=== PATIENT | male | born 1955 | race Caucasian/White ===

== ENCOUNTER 2019-03-07 18:48 | Emergency (ER) | payer OTHER ==
[~2019-03-07] VITALS: Ht 177.8 cm; Wt 79.4 kg
--- NOTE | 2019-03-07 19:03 | NUR ---
PT KATHY FROM THE STREET FOR ETOH, PT C/O OF PALPITATIONS, DENIES CP/SOB. PT AAOX2-3, VERBALLY RESPONSIVE, PT ON MONITOR, VSS, NAD NOTED, PENDING MD GUILLEN
[2019-03-07 19:37] LABS: BASOPHILS # (AUTO) 0.1 /CMM (0.0-0.2); BASOPHILS % (AUTO) 1.1 % (0.0-2.0); EOSINOPHILS % (AUTO) 1.8 % (0.0-6.0); HEMATOCRIT 49 % (39-51); HEMOGLOBIN 16.2 g/dL (13.5-17.5); LYMPHOCYTES # (AUTO) 2.5 /CMM (0.8-4.8); LYMPHOCYTES % (AUTO) 39.8 % (20.0-44.0); MEAN CORPUSCULAR HGB CONC 33 g/dl (31.0-36.0); MEAN CORPUSCULAR VOLUME 96 fL (80-96); MONOCYTES # (AUTO) 0.8 /CMM (0.1-1.30); NEUTROPHILS # (AUTO) 2.8 /CMM (1.8-8.9); NEUTROPHILS % (AUTO) 44.3 % (43.0-81.0); PLATELET COUNT (AUTO) 228 /CMM (150-450); RED BLOOD CELL COUNT(AUTO) 5.08 MIL/uL (4.5-6.0); WHITE BLOOD COUNT (AUTO) 6.3 K/uL (4.3-11.0)
[2019-03-07 19:48] LABS: CALCIUM, SERUM 8.5 mg/dL (8.5-10.1); CARBON DIOXIDE 21 mmol/L (21-32); CHLORIDE 103 mmol/L (98-107); CREATININE 0.7 mg/dL (0.6-1.3); GLUCOSE 103 mg/dL (74-106); POTASSIUM 3.7 mmol/L (3.5-5.1); SODIUM SERUM 138 mmol/L (136-145); UREA NITROGEN, BLOOD 10 mg/dL (7-18)
[2019-03-07 19:55] LABS: ACETAMINOPHEN < 2 ug/ml (10-30); ALANINE AMINOTRANSFERASE 21 U/L (12-78); ALBUMIN 2.5 g/dL (3.4-5.0); ALCOHOL, BLOOD 212 mg/dL (0-0); ALKALINE PHOSPHATASE 134 U/L (46-116); ASPARTATE AMINOTRANSFERASE 26 U/L (15-37); BILIRUBIN,TOTAL 0.1 mg/dL (0.2-1.0); SALICYLATE 7.4 mg/dL (2.8-20.0); TOTAL PROTEIN, SERUM 6.3 g/dL (6.4-8.2)
--- NOTE | 2019-03-07 20:31 | NUR ---
PT STATES HE'S S/I, PT HAS A SITTER AT BS AT THIS TIME
[2019-03-07 21:07] LABS: APPEARANCE,URINE Clear (CLEAR); BILIRUBIN,URINE Negative (NEGATIVE); BLOOD, URINE Negative Ery/uL (NEGATIVE); COLOR,URINE Yellow (YELLOW); KETONES,URINE Negative (NEGATIVE); LEUKOCYTE ESTERASE ,URINE Negative (NEGATIVE); NITRITE, URINE Negative (NEGATIVE); PH,URINE 5.5 (5.0-8.0); PROTEIN,URINE Negative (NEGATIVE); UGLUCOSE Negative (NEGATIVE); UROBILINOGEN,URINE 0.2 EU/dL (0.2)
--- NOTE | 2019-03-08 00:59 | NUR ---
JERRY CRISIS TEAM AT BEDSIDE FOR EVAL. PT CLEARED BY JERRY.
--- NOTE | 2019-03-08 05:56 | NUR ---
pt requesting to be discharged. Pt ok to be discharged per Dr Thibodeaux. Patient discharged to home in stable condition. Written and verbal after care instructions given. Patient verbalizes understanding of instruction.Patient is awake and alert to self, day, and place. Pt ambulatory with a steady gait
[2019-03-08 05:57] VITALS: BP 126/78
== END 2019-03-08 05:58 | disposition home or self-care (01) ==
LOC: ER 18:54
DX: R45.851 Suicidal ideations (principal); F10.129 Alcohol abuse with intoxication, unspecified; R07.89 Other chest pain; F31.9 Bipolar disorder, unspecified; F19.10 Other psychoactive substance abuse, uncomplicated; R41.82 Altered mental status, unspecified; Y90.5 Blood alcohol level of 100-119 mg/100 ml; Z59.0 Homelessness
CPT/HCPCS: 36415; 71045; 80048; 80076; 80305; 80307 ×2; 80329; 81001; 84484; 85025; 93005; 99284; G0480; 81000-TC

== ENCOUNTER 2022-05-26 01:42 | Inpatient (IN) | payer MEDICARE, OTHER ==
[~2022-05-26] VITALS: Ht 175.3 cm; Wt 101.6 kg
--- NOTE | 2022-05-26 01:51 | NUR ---
PATIENT TIFFANIE FROM [facility] FOR MEDICAL CLEARANCE. ON 5150 DTO/GD. PATIENT IS A/O X 3, RR EVEN AND UNLABORED NO SOB NOTED, PT IS AFEBRILE. PATIENT IS STAND BY ASSIST. SKIN INTACT. PATIENT CONNECTED TO WELDER TACK AND POX. SITTER AT PT BEDSIDE. VSS, NO ACUTE DISTRESS NOTED. WILL CONTINUE TO MONITOR.
--- NOTE | 2022-05-26 01:52 | NUR ---
COVID SWAB COLLECTED
--- NOTE | 2022-05-26 02:02 | NUR ---
URINE COLLECTED SENT TO LAB
[2022-05-26] MEDS ORDERED: DIPH25CA83 PO (02:11)
[2022-05-26] MEDS ORDERED: THIA100T74 PO (02:11)
[2022-05-26] MEDS ORDERED: HYDR-4303 PO (02:11)
[2022-05-26] MEDS ORDERED: FOLIC ACID PO (02:11)
[2022-05-26] MEDS ORDERED: LIDO700A30 TP (02:11)
[2022-05-26] MEDS ORDERED: MELA3TAB41 PO (02:11)
[2022-05-26] MEDS ORDERED: MULT-754 PO (02:11)
[2022-05-26] MEDS ORDERED: ATOR10TA PO (02:11)
[2022-05-26] MEDS ORDERED: GABA600T12 PO (02:11)
[2022-05-26] MEDS ORDERED: DIVA500T2 PO (02:11)
[2022-05-26] MEDS ORDERED: FAMO-131 PO (02:11)
[2022-05-26] MEDS ORDERED: ACET325T53 PO (02:11)
[2022-05-26] MEDS ORDERED: AMLO-213 PO (02:11)
[2022-05-26 02:37] LABS: BASOPHILS % (AUTO) 0.7 % (0.0-2.0); EOSINOPHILS % (AUTO) 2.4 % (0.0-6.0); HEMATOCRIT 45 % (39-51); HEMOGLOBIN 15.1 g/dL (13.5-17.5); LYMPHOCYTES # (AUTO) 1.9 K/uL (0.8-4.8); MEAN CORPUSCULAR HGB CONC 33 g/dl (31.0-36.0); MEAN CORPUSCULAR VOLUME 88 fL (80-96); MONOCYTES # (AUTO) 0.9 K/uL (0.1-1.30); MONOCYTES % (AUTO) 13.3 % (2.0-12.0); NEUTROPHILS # (AUTO) 3.7 K/uL (1.8-8.9); NEUTROPHILS % (AUTO) 55.6 % (43.0-81.0); PLATELET COUNT (AUTO) 185 K/uL (150-450); RED BLOOD CELL COUNT(AUTO) 5.11 MIL/uL (4.5-6.0); WHITE BLOOD COUNT (AUTO) 6.7 K/uL (4.3-11.0)
[2022-05-26 02:40] LABS: BILIRUBIN,URINE SMALL (NEGATIVE); COLOR,URINE YELLOW (YELLOW); LEUKOCYTE ESTERASE ,URINE NEGATIVE (NEGATIVE); NITRITE, URINE NEGATIVE (NEGATIVE); PH,URINE 5.5 (5.0-8.0); PROTEIN,URINE NEGATIVE (NEGATIVE); UGLUCOSE NEGATIVE (NEGATIVE); UROBILINOGEN,URINE 0.2 EU/dL (0.2)
[2022-05-26 02:46] LABS: CALCIUM, SERUM 8.6 mg/dL (8.5-10.1); CARBON DIOXIDE 27 mmol/L (21-32); GLUCOSE 115 mg/dL (74-106); UREA NITROGEN, BLOOD 20 mg/dL (7-18)
[2022-05-26 02:50] LABS: BACTERIA,URINE Rare /HPF (None Seen); CALCIUM OXALATE CRYSTALS,UR Few /HPF (None Seen); SQUAMOUS EPITHELIAL CELL,UR Few /HPF (None Seen); WBC,URINE 0-2 /HPF (0-3)
[2022-05-26 02:52] LABS: ALANINE AMINOTRANSFERASE 20 U/L (12-78); ALBUMIN 2.8 g/dL (3.4-5.0); ALCOHOL, BLOOD < 3 mg/dL (0-0); ALKALINE PHOSPHATASE 123 U/L (46-116); ASPARTATE AMINOTRANSFERASE 16 U/L (15-37); BILIRUBIN,DIRECT 0.1 mg/dL (0.0-0.2); BILIRUBIN,TOTAL 0.2 mg/dL (0.2-1.0); CHLORIDE 104 mmol/L (98-107); POTASSIUM 4.1 mmol/L (3.5-5.1); SODIUM SERUM 137 mmol/L (136-145); TOTAL PROTEIN, SERUM 6.6 g/dL (6.4-8.2)
[2022-05-26 03:03] LABS: ACETAMINOPHEN 0 ug/ml (10-30)
--- NOTE | 2022-05-26 03:40 | NUR ---
REPORT GIVEN TO LILIANA SOMMERS
[2022-05-26] MEDS ORDERED: MAGNESIUM HYDROXIDE 30 ML UDC PO PRN (04:00)
[2022-05-26] MEDS ORDERED: BLOOD SUGAR DIAGNOSTIC 1 EACH STRIP IN ONE (04:00)
[2022-05-26] MEDS ORDERED: ACETAMINOPHEN 325 MG TABLET PO SCH (05:30)
--- NOTE | 2022-05-26 05:41 | NUR ---
GPS RN ADMITTING NOTES: PATIENT ARRIVED THIS UNIT ON A W/C WITH AN ER ESCORT. PATIENT IS ON A 5150 FOR DTS/GD. HOLD WAS PLACED ON 05/25/22@ 2017. PER HOLD, PATIENT WAS BROUGHT TO THE EMERGENCY DEPARTMENT FROM [facility] AND PLACED ON A 5150 HOLD DUE TO NON COMPLIANCE, YELLING AND THREATENING STAFF AND OTHER RESIDENTS, AND STATING THAT HE WAS GOING TO BURN DOWN THE FACILITY. UPON FACE TO FACE EVALUATION, PATIENT IS A/O X3, LABILE, COOPERATIVE AND UNCOOPERATIVE, IRRITABLE, AGITATED, ANXIOUS, RESTLESS, EASILY AGITATED. DENIES SI /HI AT THIS TIME, DENIES PAIN AT THIS TIME. PATIENT BREATHING IS EVEN AND UNLABORED WITH EQUAL RISE AND FALL OF THE CHEST, ON ROOM AIR. PATIENT REFUSED SKIN ASSESSMENT BUT SIGNED ALL ADMISSION PAPER WORK. PATIENT [id number]. PATIENT BELONGINGS WERE INVENTORIED AND CONTRABAND REMOVED AND PLACED IN CONTRABAND LOCKER. PATIENT IS UNDER THE PSYCHIATRIC CARE OF DR CABALLERO AND MEDICAL CARE OF [place], BOTH DOCTORS HAVE BEEN INFORMED OF PATIENT ADMISSION AND ORDERS CARRIED OUT. PATIENT HANDBOOK AND PRESCRIPTION MEDICATION GUIDE GIVEN TO PATIENT. PATIENT ORIENTED TO UNIT POLICY AND STAFF. PATIENT OFFERED FLUID AND SNACKS TOLERATED. ALL PATIENT CARE NEEDS HAVE BEEN MET ANTICIPATED. WILL CONTINUE TO MONITOR Q15 MINS FOR MOOD, SAFETY AND BEHAVIOR.
--- NOTE | 2022-05-26 07:07 | NUR ---
GPS RN NOTES: CALLED PATIENT CONTACT NED AT 0704 BUT COULD NOT LEAVE A MESSAGE BECAUSE MAILBOX IS FULL.
--- NOTE | 2022-05-26 07:30 | NUR ---
GPS RN OPENING NOTE RECEIVED PT AWAKE IN BED. PT A/O X3, ABLE TO MAKE NEEDS KNOWN. NOT IN ANY SIGN OF RESPIRATORY DISTRESS. PT NOTED WITH EPISODE OF BEING AGGRESSIVE AND IRRITABLE TOWARDS STAFF. HE COMPLAINED AND STATED IN A ANGRY AND LOUD TONE OF VOICE OF NOT BEING ABLE TO SLEEP BECAUSE OF ALL THE NOISE. DENISY APOLOGIZED TO THE PT AND EXPLAINED THAT IT WAS A CHANGE OF SHIFT. WILL CONTINUE TO MONITOR PT.
[2022-05-26 08:00] VITALS: BP 145/99
[2022-05-26] MEDS: NICOTINE PATCH (21MG) 21 MG PATCH.TD24 TD SCH ×2 (09:00→09:09)
[2022-05-26] MEDS ORDERED: DIVALPROEX SODIUM 500 MG TABLET.DR PO SCH (09:00)
[2022-05-26] MEDS: MULTIVITAMINS,THERAGRAN 1 UDTAB TABLET PO SCH (09:09)
[2022-05-26] MEDS: THIAMINE HCL 100 MG TABLET PO SCH (09:09)
[2022-05-26] MEDS: GABAPENTIN 300 MG CAPSULE PO SCH ×3 (09:09→17:07)
[2022-05-26] MEDS: LIDOCAINE 5% (PATCH) 1 EA PATCH TP SCH (09:09)
[2022-05-26] MEDS: FAMOTIDINE (20 MG) 20 MG TABLET PO SCH ×2 (09:10→17:07)
[2022-05-26] MEDS: AMLODIPINE BESYLATE 10 MG TABLET PO SCH (09:10)
[2022-05-26] MEDS: FOLIC ACID 1 MG TABLET PO SCH (09:10)
--- NOTE | 2022-05-26 09:30 | NUR ---
CARMEN Initial Discharge Plan: Pt stated that he currently resides at [facility] located at [address] [place] [id number]; ([phone]). SW contacted admissions ([phone]) [facility] who stated that they cannot accept the pt back due to pt wanting to blow up the facility and is not safe for the other residents. Pt does not have any supportive contact. CARMEN will work with the MD and pt to help coordinate appropriate discharge.
--- NOTE | 2022-05-26 09:31 | NUR ---
Treatment Plan: Pt was verbally abusive and refused to sign the treatment plan.
--- NOTE | 2022-05-26 09:31 | NUR ---
CARMEN Clinical Note: Pt placed on a 5150 hold for danger to others and GD. Pt has been aggressive towards staff and residents at the facility. Pt stated that he currently resides at [facility] located at [address] [place] [address]; ([phone]). SW contacted admissions ([phone]) [facility] who stated that they cannot accept the pt back due to pt wanting to blow up the facility and is not safe for the other residents. Pt does not have any supportive contact.
--- NOTE | 2022-05-26 09:32 | NUR ---
SNF Contact: SW contacted admissions ([phone]) [facility] who stated that they cannot accept the pt back due to pt wanting to blow up the facility and is not safe for the other residents. Pt would need a different facility.
--- NOTE | 2022-05-26 09:33 | NUR ---
Social Work Note/Substance Abuse Intervention: Patient was provided with a brief substance abuse intervention and referred to [facility] ([phone]), [facility] ([phone]), and [facility] ([phone]) for smoking cigarettes.
[2022-05-26] MEDS: LORAZEPAM 0.5 MG TABLET PO PRN (10:17)
--- NOTE | 2022-05-26 10:17 | NUR ---
RN NOTE PT C/O FEELING ANXIOUS AND AGITATED AND REQUESTED FOR ATIVAN. ATIVAN 0.5MG PO ADMINISTERED ORDERED PRN Q6HR FOR ANXIETY AND AGITATION. WILL MONITOR AND REASSESS PT.
[2022-05-26] MEDS: risperiDONE 1 MG TABLET PO SCH ×2 (10:56→17:07)
[2022-05-26] MEDS: OXCARBAZEPINE 150 MG TABLET PO SCH ×2 (10:57→17:07)
--- NOTE | 2022-05-26 13:37 | NUR ---
GPS RN NOTE PT IS ASLEEP IN BED, EASILY AROUSED. PT ALERT AND ORIENTED X3, ABLE TO MAKE NEEDS KNOWN. PT'S CURRENT BEHAVIOR IS EASILY AGITATED, ANXIOUS, EASILY IRRITABLE AND DISORGANIZED. REDIRECTED PT NEEDED. NO S/S OF DISTRESS. RESPIRATION EVEN AND UNLABORED. BED IN LOWEST POSITION AND LOCKED, SIDE RAILS UP X2 FOR SAFETY. WILL CONTINUE TO MONITOR Q15 FOR MOOD, SAFETY AND BEHAVIOR.
[2022-05-26 16:00] VITALS: BP 139/96
[2022-05-26] MEDS: ATORVASTATIN 10 MG TABLET PO SCH (17:07)
--- NOTE | 2022-05-26 18:51 | NUR ---
GPS RN CLOSING NOTE PT IS RESTING IN BED. PT ALERT AND ORIENTED X3, ABLE TO MAKE NEEDS KNOWN. PT IS CALM WITH NOT EPISODES OF AGGRESSIVENESS OR UNTOWARD BEHVAIOR TOWARDS STAFF AT THIS TIME. NO S/S OF DISTRESS. RESPIRATION EVEN AND UNLABORED. BED IN LOWEST POSITION AND LOCKED, SIDE RAILS UP X2 FOR SAFETY. WILL ENDORSE TO NIGHT NURSE FOR HAYDEN.
--- NOTE | 2022-05-26 19:30 | NUR ---
GPS RN OPENING NOTES: RECEIVED PATIENT IN HALLWAY, A/O X3, APPEARS DEPRESSED, BLUNTED AFFECT, LABILE, EASILY AGITATED, ANXIOUS, RESTLESS, DEMANDING, VERBALLY AGGRESSIVE, NEEDS FREQUENT REDIRECTION. NO S/S OF DISTRESS. RESPIRATION EVEN AND UNLABORED WITH EQUAL RISE AND FALL OF THE CHEST, ON ROOM AIR. OFFERED FLUID AND SNACKS TOLERATED. WILL CONTINUE TO MONITOR Q15 FOR MOOD, SAFETY AND BEHAVIOR.
[2022-05-26 20:00] VITALS: BP 134/90
[2022-05-26] MEDS ORDERED: Medication Not On Formulary EA (Melatonin 6 MG) PO SCH (22:00)
[2022-05-27] MEDS: TEMAZEPAM 7.5 MG CAPSULE PO PRN ×2 (02:14→21:34)
--- NOTE | 2022-05-27 02:19 | NUR ---
GPS RN NOTES: PATIENT REQUESTED FOR SLEEP MEDICATION. RESTORIL 7.5MG GIVEN PO FOR SLEEP AT 0214. WILL CONTINUE TO MONITOR.
[2022-05-27 07:21] LABS: BASOPHILS % (AUTO) 0.5 % (0.0-2.0); HEMATOCRIT 45 % (39-51); HEMOGLOBIN 14.9 g/dL (13.5-17.5); LYMPHOCYTES # (AUTO) 1.9 K/uL (0.8-4.8); LYMPHOCYTES % (AUTO) 31.9 % (20.0-44.0); MEAN CORPUSCULAR HGB CONC 33 g/dl (31.0-36.0); MEAN CORPUSCULAR VOLUME 88 fL (80-96); MONOCYTES # (AUTO) 0.7 K/uL (0.1-1.30); MONOCYTES % (AUTO) 10.9 % (2.0-12.0); NEUTROPHILS # (AUTO) 3.3 K/uL (1.8-8.9); NEUTROPHILS % (AUTO) 54.7 % (43.0-81.0); PLATELET COUNT (AUTO) 165 K/uL (150-450)
[2022-05-27 07:41] LABS: CALCIUM, SERUM 8.8 mg/dL (8.5-10.1); CREATININE 0.9 mg/dL (0.6-1.3); POTASSIUM 4.1 mmol/L (3.5-5.1)
[2022-05-27 08:00] VITALS: BP 144/93
[2022-05-27] MEDS: NICOTINE PATCH (21MG) 21 MG PATCH.TD24 TD SCH (09:00)
[2022-05-27] MEDS: OXCARBAZEPINE 150 MG TABLET PO SCH ×2 (09:49→17:23)
[2022-05-27] MEDS: FOLIC ACID 1 MG TABLET PO SCH (09:49)
[2022-05-27] MEDS: THIAMINE HCL 100 MG TABLET PO SCH (09:49)
[2022-05-27] MEDS: GABAPENTIN 300 MG CAPSULE PO SCH ×3 (09:49→17:23)
[2022-05-27] MEDS: FAMOTIDINE (20 MG) 20 MG TABLET PO SCH ×2 (09:49→17:23)
[2022-05-27] MEDS: risperiDONE 1 MG TABLET PO SCH ×2 (09:49→17:23)
[2022-05-27] MEDS: MULTIVITAMINS,THERAGRAN 1 UDTAB TABLET PO SCH (09:49)
[2022-05-27] MEDS: AMLODIPINE BESYLATE 10 MG TABLET PO SCH (09:50)
[2022-05-27] MEDS: LIDOCAINE 5% (PATCH) 1 EA PATCH TP SCH (09:51)
[2022-05-27] MEDS: ASPIRIN 81 MG TAB.CHEW PO SCH (10:01)
[2022-05-27 16:00] VITALS: BP 125/84
[2022-05-27] MEDS: ATORVASTATIN 10 MG TABLET PO SCH (17:23)
[2022-05-27 20:18] VITALS: BP 120/85
[2022-05-27 20:34] VITALS: BP 120/85
[2022-05-27] MEDS: ACETAMINOPHEN 325 MG TABLET PO PRN (21:29)
--- NOTE | 2022-05-27 21:30 | NUR ---
RN NOTE: PAIN PATIENT C/O GENERALIZED BODY PAIN 12/01 AND WANTED TO TAKE TYLENOL. PRN TYLENOL 650 MG PO ADMINISTERED.
--- NOTE | 2022-05-27 21:36 | NUR ---
RN NOTE: INSOMNIA PATIENT IS EASILY AGITATED AND C/O INABILITY TO SLEEP. PATIENT INSISTED TO TAKE SLEEPING MEDICINE "RIGHT NOW" PRN RESTORIL 7.5 MG PO ADMINISTERED ORDERED BY .
--- NOTE | 2022-05-27 22:41 | NUR ---
GPS RN NOTE, PATIENT HAS A COMPLAINT OF CONGESTION AND WOULD LIKE A ANI-HISTAMINE . [facility] AND INFORMED STEPH KRUSE DNP OF MY FINDINGS. STEPH KRUSE DNP ORDERED ROBITUSSIN DM SYRUP 5ML 1 UNIT DOSE CUP PO Q4HR PRN FOR CONGESTION AND COUGH. ALL ORDERS NOTED AND CARRIED OUT. WILL CONTINUE TO MONITOR THIS PATIENT WITH THE HELP OF STAFF.
[2022-05-27] MEDS ORDERED: GUAIFENESIN/D-METHORPHAN HB 5 ML UDC PO PRN (23:00)
[2022-05-27] MEDS: MAG HYDROX/AL HYDROX/SIMETH 30 ML UDC PO PRN (23:45)
--- NOTE | 2022-05-27 23:47 | NUR ---
RN NOTE: INDIGESTION PATIENT C/O INDIGESTION AND WANTED TO TAKE MEDICINE. PRN MAALOX 30 ML PO ADMINISTERED. WILL CONTINUE TO MONITOR.
[2022-05-28] MEDS: LORAZEPAM 0.5 MG TABLET PO PRN (04:51)
--- NOTE | 2022-05-28 04:52 | NUR ---
GPS RN NOTE, PATIENT HAS A COMPLAINT OF FEELING ANXIOUS AND IS REQUESTING ATIVAN AT THIS TIME. PATIENT VITAL SIGNS ARE STABLE. GAVE ATIVAN 0.5MG PO Q6HR PRN ORDERED. WILL REASSESS FOR ANXIETY AND I WILL CONTINUE TO MONITOR THIS PATIENT WITH THE HELP OF STAFF.
[2022-05-28] MEDS: ACETAMINOPHEN 325 MG TABLET PO PRN (04:59)
--- NOTE | 2022-05-28 04:59 | NUR ---
GPS RN NOTE, PATIENT HAS A COMPLAINT OF GENERALIZED BODY PAIN AT 3 OUT 10 ON THE PAIN SCALE REQUESTING TYLENOL AT THIS TIME. PATIENT VITAL SIGNS ARE STABLE GAVE TYLENOL 650MG PO Q6HR PRN ORDERED. WILL REASSESS PAIN AND I WILL CONTINUE TO MONITOR THIS PATIENT WITH THE HELP OF STAFF.
[2022-05-28 08:00] VITALS: BP 143/63
[2022-05-28] MEDS: OXCARBAZEPINE 150 MG TABLET PO SCH ×3 (08:28→17:25)
[2022-05-28] MEDS: MULTIVITAMINS,THERAGRAN 1 UDTAB TABLET PO SCH (08:28)
[2022-05-28] MEDS: FAMOTIDINE (20 MG) 20 MG TABLET PO SCH ×2 (08:28→17:24)
[2022-05-28] MEDS: THIAMINE HCL 100 MG TABLET PO SCH (08:28)
[2022-05-28] MEDS: risperiDONE 1 MG TABLET PO SCH ×3 (08:28→17:25)
[2022-05-28] MEDS: AMLODIPINE BESYLATE 10 MG TABLET PO SCH (08:29)
[2022-05-28] MEDS: ASPIRIN 81 MG TAB.CHEW PO SCH (08:32)
[2022-05-28] MEDS: FOLIC ACID 1 MG TABLET PO SCH (08:32)
[2022-05-28] MEDS: GABAPENTIN 300 MG CAPSULE PO SCH ×3 (08:32→17:25)
[2022-05-28] MEDS: LIDOCAINE 5% (PATCH) 1 EA PATCH TP SCH (08:32)
[2022-05-28] MEDS: NICOTINE PATCH (21MG) 21 MG PATCH.TD24 TD SCH (08:37)
[2022-05-28] MEDS: MAG HYDROX/AL HYDROX/SIMETH 30 ML UDC PO PRN (14:34)
[2022-05-28 16:00] VITALS: BP 136/95
[2022-05-28] MEDS: ATORVASTATIN 10 MG TABLET PO SCH (17:24)
--- NOTE | 2022-05-28 19:15 | NUR ---
GPS RN NOTES PATIENT IS WHEELING SELF AROUND THE HALLWAY. A/OX3. NO S/SX OF ACUTE DISTRESS NOTED. PATIENT REMAINS ANXIOUS, EASILY GET IRRITABLE. DENIES SI/HI/AVH AT THIS TIME. PT IS ABLE TO TRANSFER FROM BED TO WHEELCHAIR SAFELY. BED IN LOW LOCKED POSITION. SAFETY PRECAUTIONS IN PLACE. WILL CONTINUE TO MONITOR Q15 FOR MOOD, SAFETY AND BEHAVIOR.
--- NOTE | 2022-05-28 20:00 | NUR ---
GPS RN NOTES PATIENT REFUSED WEEKLY SKIN ASSESSMENT.
[2022-05-28 20:47] VITALS: BP 130/91
[2022-05-28] MEDS: TEMAZEPAM 7.5 MG CAPSULE PO PRN (21:28)
[2022-05-29] MEDS: LORAZEPAM 0.5 MG TABLET PO PRN (03:07)
[2022-05-29 08:00] VITALS: BP 148/97
[2022-05-29] MEDS: ASPIRIN 81 MG TAB.CHEW PO SCH (09:44)
[2022-05-29] MEDS: AMLODIPINE BESYLATE 10 MG TABLET PO SCH (09:44)
[2022-05-29] MEDS: MULTIVITAMINS,THERAGRAN 1 UDTAB TABLET PO SCH (09:44)
[2022-05-29] MEDS: NICOTINE PATCH (21MG) 21 MG PATCH.TD24 TD SCH (09:44)
[2022-05-29] MEDS: FAMOTIDINE (20 MG) 20 MG TABLET PO SCH ×2 (09:45→17:29)
[2022-05-29] MEDS: THIAMINE HCL 100 MG TABLET PO SCH (09:45)
[2022-05-29] MEDS: risperiDONE 1 MG TABLET PO SCH ×3 (09:45→17:29)
[2022-05-29] MEDS: OXCARBAZEPINE 150 MG TABLET PO SCH ×3 (09:45→17:28)
[2022-05-29] MEDS: FOLIC ACID 1 MG TABLET PO SCH (09:45)
[2022-05-29] MEDS: LIDOCAINE 5% (PATCH) 1 EA PATCH TP SCH (09:45)
[2022-05-29] MEDS: GABAPENTIN 300 MG CAPSULE PO SCH ×3 (09:45→17:28)
[2022-05-29 16:00] VITALS: BP 151/71
[2022-05-29] MEDS: ATORVASTATIN 10 MG TABLET PO SCH (17:30)
[2022-05-29 20:12] VITALS: BP 101/61
[2022-05-29 20:58] VITALS: BP 101/61
[2022-05-29] MEDS: TEMAZEPAM 7.5 MG CAPSULE PO PRN (21:14)
--- NOTE | 2022-05-29 21:16 | NUR ---
RN NOTE: INSOMNIA PATIENT C/O INABILITY TO SLEEP. PATIENT INSISTED TO TAKE SLEEPING MEDICINE AT THIS TIME. PRN RESTORIL 7.5 MG PO ADMINISTERED ORDERED BY .
[2022-05-30] MEDS: LORAZEPAM 0.5 MG TABLET PO PRN (04:28)
--- NOTE | 2022-05-30 04:31 | NUR ---
RN NOTE: ANXIETY PATIENT C/O FEELING ANXIOUS AND RESTLESS AND WANTED TO TAKE MEDICINE. PRN ATIVAN 0.5 MG PO ADMINISTERED.
[2022-05-30 08:00] VITALS: BP 151/85
[2022-05-30] MEDS: NICOTINE PATCH (21MG) 21 MG PATCH.TD24 TD SCH ×2 (09:00→09:56)
[2022-05-30] MEDS: LIDOCAINE 5% (PATCH) 1 EA PATCH TP SCH (09:57)
[2022-05-30] MEDS: risperiDONE 1 MG TABLET PO SCH ×4 (09:57→17:00)
[2022-05-30] MEDS: ASPIRIN 81 MG TAB.CHEW PO SCH (09:57)
[2022-05-30] MEDS: OXCARBAZEPINE 150 MG TABLET PO SCH ×4 (09:57→17:00)
[2022-05-30] MEDS: MULTIVITAMINS,THERAGRAN 1 UDTAB TABLET PO SCH (09:57)
[2022-05-30] MEDS: THIAMINE HCL 100 MG TABLET PO SCH (09:57)
[2022-05-30] MEDS: GABAPENTIN 300 MG CAPSULE PO SCH ×3 (09:58→17:56)
[2022-05-30] MEDS: FOLIC ACID 1 MG TABLET PO SCH (09:58)
[2022-05-30] MEDS: FAMOTIDINE (20 MG) 20 MG TABLET PO SCH ×2 (09:58→17:56)
[2022-05-30] MEDS: AMLODIPINE BESYLATE 10 MG TABLET PO SCH (09:58)
--- NOTE | 2022-05-30 11:45 | NUR ---
RN NOTE PATIENT GOT UPSET BECAUSE THE REGULAR STRIP FEEDER IS NOT HERE AND HE THINKS THAT HE WILL BE STAYING HERE MUCH LONGER. PATIENT WAS CRYING. PATIENT SPOKE WITH NURSES AND CALMED DOWN. EXPLAINED TO HIM THAT HE NEEDS TO SPEAK WITH MD. AWAITING MD.
--- NOTE | 2022-05-30 13:00 | NUR ---
RN NOTE PATIENT SEEN BY DR. CABALLERO WITH ORDER FOR DISCHARGE. PATIENT HEALTH TEACHING DONE AND PATIENT VERBALIZED UNDERSTANDING AND APPRECIATION. PATIENT SPOKE WITH [employer] PILOT AND CAREGIVER TO COORDINATE PICK-UP. IN STABLE CONDITION.
--- NOTE | 2022-05-30 14:10 | NUR ---
RN NOTE SEEN BY SHALA STEWARD AND CLEARED PATIENT FOR DISCHARGE. IN STABLE CONDITION. HEALTH TEACHING DONE REGARDING MEDICATIONS AND DISCHARGE INSTRUCTIONS. VERBALIZED UNDERSTANDING AND APPRECIATION.
[2022-05-30 16:00] VITALS: BP 122/68
--- NOTE | 2022-05-30 17:45 | NUR ---
RN NOTE PATIENT DISCHARGED ORDERED. PATIENT PICKEUP BY CAREGIVER OSCAR. IN STABLE CONDITION. BELONGINGS GIVEN TO PATIENT. PATIENT AND CAREGIVER ACCOMPANIED TO LOBBY BY NURSE.
[2022-05-30] MEDS: ATORVASTATIN 10 MG TABLET PO SCH (17:56)
== END 2022-05-30 18:15 | disposition home or self-care (01) | DRG 885 ==
LOC: ER 01:49 → GPS 02:57
PROVIDERS: ADMIT Psychiatry & Neurology Psychosomatic Medicine; ATTEND Nurse Practitioner Family
DX: F29 Unspecified psychosis not due to a substance or known physiological condition (principal); Z20.822 Contact with and (suspected) exposure to COVID-19; E78.5 Hyperlipidemia, unspecified; D64.9 Anemia, unspecified; F17.200 Nicotine dependence, unspecified, uncomplicated; E66.01 Morbid (severe) obesity due to excess calories; I10 Essential (primary) hypertension; Z59.00 Homelessness unspecified; Z86.73 Personal history of transient ischemic attack (TIA), and cerebral infarction without residual deficits; Z86.16 Personal history of COVID-19; F25.0 Schizoaffective disorder, bipolar type; F19.10 Other psychoactive substance abuse, uncomplicated; R41.9 Unspecified symptoms and signs involving cognitive functions and awareness; Z73.6 Limitation of activities due to disability; R73.9 Hyperglycemia, unspecified; I25.10 Atherosclerotic heart disease of native coronary artery without angina pectoris; Z79.899 Other long term (current) drug therapy; Z89.612 Acquired absence of left leg above knee; I73.9 Peripheral vascular disease, unspecified; Z68.33 Body mass index [BMI] 33.0-33.9, adult
CPT/HCPCS: 36415; 80048-TC; 80061-TC; 80076-TC; 81001; 82962-TC; 85025-TC; 87081-TC; 97112-TC; 97530-TC; G0480